=== PATIENT | female | born 1970 | race American Indian/Alaskan Native ===

== ENCOUNTER 2016-05-14 10:12 | Emergency (ER) | payer OTHER ==
[2016-05-14 11:11] VITALS: BP 138/92
[2016-05-14 12:42] LABS: Bilirubin,Urine NEG (Negative); Blood,Urine MOD (Negative); Ketones,Urine NEG (Negative); Leukocyte Esterase,Urine NEG (Negative); Mucus,Urine FEW /HPF; Nitrite,Urine NEG (Negative); Protein,Urine <15 mg/dL mg/dL (Negative); Urobilinogen,Urine < 2.0 mg/dL (<2.0)
--- NOTE | 2016-05-14 14:33 | Emergency Department Report ---
HPI - General Chief Complaint: Urogenital-Female Time Seen by Provider: 05/14/16 13:45 - HPI HPI: 46-year-old female presents today with painful urination 9 days. Patient states that she has been taking cranberry juice and her symptoms have improved. Positive for lower back pain and minimal blood in urine. Denies radiation of pain. Denies numbness, weakness, paresthesias. Denies bowel or bladder incontinence. Denies vaginal discharge, increased urinary frequency or urgency , fever, chills, nausea, vomiting, chest pain, shortness of breath, abdominal pain. Denies trying any medication for symptomatic relief. ED Past Medical Hx - Past Medical History Previous Medical History?: No - Surgical History Past Surgical History?: No - Social History Smoking Status: Never Smoker Substance Use Type: None - Medications Home Medications: Home Medications Medication Instructions Recorded Confirmed Last Taken Type Phenazopyridine [Pyridium] 200 mg PO TID #6 tab 05/14/16 Unknown Rx ED Review of Systems ROS: Stated complaint: BLADDER INFECTION/SINUS Other details as noted in HPI Constitutional: denies: chills, fever, malaise Eyes: denies: eye pain ENT: denies: ear pain, throat pain, congestion Respiratory: denies: cough, shortness of breath, wheezing Cardiovascular: denies: chest pain, palpitations Gastrointestinal: denies: abdominal pain, nausea, vomiting Genitourinary: dysuria, hematuria. denies: urgency, frequency, discharge Musculoskeletal: back pain Neurological: denies: headache, weakness Physical Exam - Physical Exam Vital Signs: Vital Signs 05/14/16 11:08 Temperature 98.6 F Pulse Rate 87 Respiratory 18 Rate Blood Pressure 138/92 O2 Sat by Pulse 100 Oximetry Physical Exam: GENERAL: The patient is well-developed and well-nourished. Patient is in NAD. HEAD: Normocephalic. Atraumatic. CHEST/LUNGS: Clear to auscultation throughout. HEART/CARDIOVASCULAR: Regular rate and rhythm. ABDOMEN: Abdomen is soft, nontender. Bowel sounds normoactive. No guarding or rebound tenderness. Negative for CVA tenderness bilaterally. EXTREMITIES: Peripheral pulses intact. Capillary refill less than 2 seconds. BACK: Full ROM. No midline or paraspinal tenderness to palpation. No tenderness to palpation of sciatic notch bilaterally. Negative straight leg raise bilaterally. NEURO: Alert and oriented x 3. Normal gait. ED Course Vital Signs 05/14/16 11:08 Temperature 98.6 F Pulse Rate 87 Respiratory 18 Rate Blood Pressure 138/92 O2 Sat by Pulse 100 Oximetry ED Medical Decision Making - Lab Data Vital Signs 05/14/16 11:08 Temperature 98.6 F Pulse Rate 87 Respiratory 18 Rate Blood Pressure 138/92 O2 Sat by Pulse 100 Oximetry Lab Results 05/14/16 Range/Units 12:03 Urine Color Yellow (Yellow) Urine Turbidity Clear (Clear) Urine pH 5.0 (5.0-7.0) Ur Specific [place] 1.017 (1.003-1.030) Urine Protein <15 mg/dl (Negative) mg/dL Urine Glucose (UA) Neg (Negative) mg/dL Urine Ketones Neg (Negative) mg/dL Urine Blood Mod (Negative) Urine Nitrite Neg (Negative) Urine Bilirubin Neg (Negative) Urine Urobilinogen < 2.0 (<2.0) mg/dL Ur Leukocyte Esterase Neg (Negative) Urine WBC (Auto) 1.0 (0.0-6.0) /HPF Urine RBC (Auto) 5.0 (0.0-6.0) /HPF U Epithel Cells (Auto) 5.0 (0-13.0) /HPF Urine Mucus Few /HPF - Medical Decision Making 46-year-old female presents today with a painful urination 9 days. Her urinalysis is within normal limits. Informed patient that there is some blood in her urine and provided her with a referral for urology. Patient is in no acute distress at this time. She will be discharged home and is encouraged to follow up with a primary care provider. She will be sent home on Pyridium and is encouraged to return to the emergency room for any worsening symptoms. Critical care attestation.: If time is entered above; I have spent that time in minutes in the direct care of this critically ill patient, excluding procedure time. ED Disposition Clinical Impression: Dysuria Disposition: DISCHARGED TO HOME OR SELFCARE Is pt being admited?: No Does the pt Need Aspirin: No Condition: Stable Instructions: Dysuria (ED) Additional Instructions: Follow-up with primary care provider. Return to the emergency department if symptoms worsen. Prescriptions: Phenazopyridine [Pyridium] 200 mg PO TID #6 tab Referrals: [facility] [Outside] - 3-5 Days PRIMARY CARE, [Primary Care Provider] - 3-5 Days CRYSTAL ANDERSON MD [Staff Physician] - 3-5 Days Forms: Work/School Release Form(ED) Time of Disposition: 14:30
== END 2016-05-14 14:52 | disposition home or self-care (01) ==
LOC: ED 10:12
DX: R30.0 Dysuria (principal); M54.5 Low back pain
CPT/HCPCS: 81001; 99283

== ENCOUNTER 2016-12-18 10:07 | Emergency (ER) | payer SELFPAY ==
[2016-12-18 10:18] VITALS: BP 127/85
[2016-12-18 11:02] LABS: Bilirubin,Urine NEG (Negative); Blood,Urine MOD (Negative); Ketones,Urine TR mg/dL (Negative); Leukocyte Esterase,Urine NEG (Negative); Nitrite,Urine NEG (Negative); Protein,Urine <15 mg/dL mg/dL (Negative); Urobilinogen,Urine < 2.0 mg/dL (<2.0)
--- NOTE | 2016-12-18 15:51 | Emergency Department Report ---
HPI - General Chief Complaint: Urogenital-Female Time Seen by Provider: 12/18/16 15:44 - HPI HPI: Patient is a 46-year-old female with no prior medical history presents to ED complaining of lower pelvic cramping pain 2 weeks and painful urination. Patient states 2 days ago she started experiencing some bilateral flank pain. She also noticed some urinary urgency. Patient also states she has a whitish creamy H malodorous vaginal discharge times one week. She denies fevers/chills/nausea/vomiting/abdominal pain/chest pains or shortness of breath problems. ED Past Medical Hx - Past Medical History Previous Medical History?: Yes Hx Hypertension: Yes (no meds) - Surgical History Past Surgical History?: No - Social History Smoking Status: Never Smoker Substance Use Type: Alcohol, Non Opiate Pain - Medications Home Medications: Home Medications Medication Instructions Recorded Confirmed Last Taken Type Phenazopyridine [Pyridium] 200 mg PO TID #6 tab 12/18/16 Unknown Rx Sulfamethoxazole/Trimethoprim 1 each PO BID #14 tablet 12/18/16 Unknown Rx [Bactrim DS TAB] ED Review of Systems ROS: Stated complaint: UTI Other details as noted in HPI Constitutional: denies: chills, fever Eyes: denies: eye pain, eye discharge, vision change ENT: denies: ear pain, throat pain, congestion Respiratory: denies: cough, shortness of breath, wheezing Cardiovascular: denies: chest pain, palpitations Endocrine: no symptoms reported Gastrointestinal: denies: abdominal pain, nausea, diarrhea Genitourinary: urgency, frequency, discharge. denies: dysuria, hematuria Musculoskeletal: denies: back pain, joint swelling, arthralgia, myalgia Skin: denies: rash, lesions Neurological: denies: headache, weakness, numbness, paresthesias, confusion Psychiatric: denies: anxiety, depression Hematological/Lymphatic: denies: easy bleeding, easy bruising Physical Exam - Physical Exam Vital Signs: Vital Signs 12/18/16 10:13 Temperature 98.7 F Pulse Rate 97 H Respiratory 18 Rate Blood Pressure 127/85 O2 Sat by Pulse 98 Oximetry Physical Exam: GENERAL: Alert and oriented x3, no apparent distress, Normal Gait, atraumatic. HEAD: Head is normocephalic and a-traumatic. LUNGS: Symetrical with respiration, No wheezing, no rales or crackles, CTAB. HEART: S1, S2 present, regular rate and rhythm without murmur, no rubs, no gallops. Non tender to palpation ABDOMEN: No organomegaly was noted,Positive bowel sounds, soft, and non- distended. . Nontender to palpation on all Quadrants, NO CVA tenderness. BACK: Full range of motion, no spinal tenderness, nontender to palpation. GENITOURINARY: External genitalia without erythema, exudate or discharge. Vaginal vault is with moderate discharge. Cervix is of normal color without lesion. Cervical os is closed. No bleeding noted. Uterus is noted to be of normal size and nontender. No cervical motion tenderness. No masses are palpated. The adnexa are without masses or tenderness. SKIN: Warm and dry, No lesions, No ulceration or induration present. ED Course Vital Signs 12/18/16 10:13 Temperature 98.7 F Pulse Rate 97 H Respiratory 18 Rate Blood Pressure 127/85 O2 Sat by Pulse 98 Oximetry ED Medical Decision Making - Medical Decision Making 46-year-old female presents with ED course: Urinalysis, and test, wet prep, gonorrhea and Chlamydia cultures are sent Urinalysis positive ataxia, progressive test negative, wet prep shows bacterial vaginosis Discussed findings with the patient. Discussed patient took medication as prescribed. Patient was treated in the ED for GC and given antibiotics at home for UTI Discussed follow-up with her floral arranger. Discuss to return to ED if any new or worsening symptoms. Vital signs are normal patient is in no acute distress she understands all instructions given. Critical care attestation.: If time is entered above; I have spent that time in minutes in the direct care of this critically ill patient, excluding procedure time. ED Disposition Clinical Impression: Bacterial vaginosis UTI (urinary tract infection) Qualifiers: Urinary tract infection type: acute cystitis Hematuria presence: with hematuria Qualified Code(s): N30.01 - Acute cystitis with hematuria Is pt being admited?: No Does the pt Need Aspirin: No Condition: Stable Instructions: Bacterial Vaginosis (ED), Urinary Tract Infection in Women (ED) Prescriptions: Phenazopyridine [Pyridium] 200 mg PO TID #6 tab Sulfamethoxazole/Trimethoprim [Bactrim DS TAB] 1 each PO BID #14 tablet Referrals: PRIMARY CARE, [Primary Care Provider] - 3-5 Days GUERA MARIE MD [Referring] - 3-5 Days [facility] [Outside] - 3-5 Days [facility] [Outside] - 3-5 Days [facility] [Outside] - 3-5 Days Forms: Accompanied Note, STI Treatment and Prevention, Work/School Release Form (ED) Time of Disposition: 17:15
[2016-12-18 16:20] LABS: Bilirubin,Urine NEG (Negative); Blood,Urine MOD (Negative); Ketones,Urine NEG (Negative); Leukocyte Esterase,Urine NEG (Negative); Mucus,Urine FEW /HPF; Nitrite,Urine NEG (Negative); Protein,Urine <15 mg/dL mg/dL (Negative); Urobilinogen,Urine < 2.0 mg/dL (<2.0); WBC,Urine < 1.0 /HPF (0.0-6.0)
[2016-12-18] MEDS ORDERED: FLAGYL PO ONE (17:14)
== END 2016-12-18 17:38 ==
LOC: ED 10:07
DX: N76.0 Acute vaginitis (principal); N39.0 Urinary tract infection, site not specified; I10 Essential (primary) hypertension
CPT/HCPCS: 81001; 81025; 87210; 87591; 99283

== ENCOUNTER 2018-08-31 08:30 | Emergency (ER) | payer MEDICAID ==
--- NOTE | 2018-08-31 09:12 | Emergency Department Report ---
ED General Adult HPI - General Chief complaint: Earache Stated complaint: EAR ACHE Time Seen by Provider: 08/31/18 09:02 Source: patient Mode of arrival: Ambulatory Limitations: No Limitations - History of Present Illness Initial comments: This is a 48-year-old female with history of untreated hypertension who presents with right ear pain and vaginal discharge. She does not use Q-tips. No foreign bodies in her ear has been there recently. She's had nasal congestion and postnasal drip. She is also concerned for bacterial vaginosis. She desires prescription. -: Gradual, days(s) (4) Location: head, pelvis Consistency: constant Improves with: none Worsens with: none Associated Symptoms: denies other symptoms - Related Data Previous Rx's Medication Instructions Recorded Last Taken Type Phenazopyridine [Pyridium] 200 mg PO TID #6 tab 12/18/16 Unknown Rx Sulfamethoxazole/Trimethoprim 1 each PO BID #14 tablet 12/18/16 Unknown Rx [Bactrim DS TAB] Fluconazole [Diflucan TAB] 150 mg PO ONCE #1 tablet 08/31/18 Unknown Rx Fluticasone [Flonase] 1 spray NS QDAY 30 Days #1 bottle 08/31/18 Unknown Rx Loratadine 10 mg PO DAILY 30 Days #30 tablet 08/31/18 Unknown Rx metroNIDAZOLE [Flagyl TAB] 500 mg PO Q12HR 7 Days #14 tab 08/31/18 Unknown Rx Allergies Allergy/AdvReac Type Severity Reaction Status Date / Time No Known Allergies Allergy Verified 08/31/18 08:31 ED Review of Systems ROS: Stated complaint: EAR ACHE Other details as noted in HPI Constitutional: denies: fever, malaise Eyes: denies: eye pain ENT: ear pain. denies: throat pain Respiratory: denies: cough, shortness of breath Gastrointestinal: denies: abdominal pain Genitourinary: discharge ED Past Medical Hx - Past Medical History Hx Hypertension: Yes - Surgical History Past Surgical History?: No - Social History Smoking Status: Never Smoker - Medications Home Medications: Home Medications Medication Instructions Recorded Confirmed Last Taken Type Phenazopyridine [Pyridium] 200 mg PO TID #6 tab 12/18/16 Unknown Rx Sulfamethoxazole/Trimethoprim 1 each PO BID #14 tablet 12/18/16 Unknown Rx [Bactrim DS TAB] Fluconazole [Diflucan TAB] 150 mg PO ONCE #1 tablet 08/31/18 Unknown Rx Fluticasone [Flonase] 1 spray NS QDAY 30 Days #1 bottle 08/31/18 Unknown Rx Loratadine 10 mg PO DAILY 30 Days #30 tablet 08/31/18 Unknown Rx metroNIDAZOLE [Flagyl TAB] 500 mg PO Q12HR 7 Days #14 tab 08/31/18 Unknown Rx ED Physical Exam - General Limitations: No Limitations General appearance: alert, in no apparent distress - Head Head exam: Present: atraumatic, normocephalic - Eye Eye exam: Present: normal appearance - ENT ENT exam: Present: normal orophraynx, mucous membranes moist, TM's normal bilaterally, normal external ear exam - Neck Neck exam: Present: normal inspection, full ROM - Respiratory Respiratory exam: Absent: respiratory distress - Extremities Exam Extremities exam: Present: normal inspection - Neurological Exam Neurological exam: Present: alert, oriented X3, normal gait - Psychiatric Psychiatric exam: Present: normal affect, normal mood - Skin Skin exam: Present: normal color. Absent: rash ED Course Vital Signs 08/31/18 08:31 Pulse Rate 82 Respiratory 16 Rate Blood Pressure 183/112 O2 Sat by Pulse 100 Oximetry ED Medical Decision Making - Medical Decision Making 1 right ear pain with no evidence of otitis externa or otitis media. No indication of infection. Recommended antihistamines loratadine and Flonase for eustachian tube dysfunction due to allergic rhinitis 2 vaginitis: Fluconazole and metronidazole prescription is provided Critical care attestation.: If time is entered above; I have spent that time in minutes in the direct care of this critically ill patient, excluding procedure time. ED Disposition Clinical Impression: Eustachian tube dysfunction, Allergic rhinitis, Bacterial vaginosis Disposition: DC-01 TO HOME OR SELFCARE Is pt being admited?: No Does the pt Need Aspirin: No Condition: Stable Instructions: Bacterial Vaginosis (ED), Earache (ED) Prescriptions: Fluconazole [Diflucan TAB] 150 mg PO ONCE #1 tablet metroNIDAZOLE [Flagyl TAB] 500 mg PO Q12HR 7 Days #14 tab Fluticasone [Flonase] 1 spray NS QDAY 30 Days #1 bottle Loratadine 10 mg PO DAILY 30 Days #30 tablet Referrals: AURELIO GARNICA MD [Primary Care Provider] - 3-5 Days
[2018-08-31 09:35] VITALS: BP 157/111
== END 2018-08-31 09:35 | disposition home or self-care (01) ==
LOC: ED 08:30
DX: H69.91 Unspecified Eustachian tube disorder, right ear (principal); N76.0 Acute vaginitis; B96.89 Other specified bacterial agents as the cause of diseases classified elsewhere; J30.9 Allergic rhinitis, unspecified; I10 Essential (primary) hypertension
CPT/HCPCS: 99282

== ENCOUNTER 2019-01-13 08:56 | Emergency (ER) | payer MEDICAID ==
[2019-01-13 09:45] LABS: Bilirubin,Urine NEG (Negative); Blood,Urine SM (Negative); Color,Urine Yellow (Yellow); Protein,Urine <15 mg/dL mg/dL (Negative); Urobilinogen,Urine < 2.0 mg/dL (<2.0)
[2019-01-13 09:46] LABS: Mucus,Urine FEW /HPF; WBC,Urine < 1.0 /HPF (0.0-6.0)
--- NOTE | 2019-01-13 10:09 | Emergency Department Report ---
HPI - General Chief Complaint: Back Pain/Injury Time Seen by Provider: 01/13/19 09:49 - HPI HPI: 48-year-old [place] female presents to the emergency department with complaint of a one-day history of some burning with urination and some low back pain. The patient also says she has been having some chills without fever. She thinks that she could have a urinary tract infection. She has not taken anything for her symptoms prior to presentation. She has a past medical history of hypertension. The patient later also admits that she has some mild vaginal discharge. No abdominal pain, nausea, vomiting. ED Past Medical Hx - Past Medical History Previous Medical History?: Yes Hx Hypertension: Yes - Surgical History Past Surgical History?: No - Social History Smoking Status: Current Some Day Smoker Substance Use Type: None - Medications Home Medications: Home Medications Medication Instructions Recorded Confirmed Last Taken Type Phenazopyridine [Pyridium] 200 mg PO TID #6 tab 12/18/16 Unknown Rx Sulfamethoxazole/Trimethoprim 1 each PO BID #14 tablet 12/18/16 Unknown Rx [Bactrim DS TAB] Fluconazole [Diflucan TAB] 150 mg PO ONCE #1 tablet 08/31/18 Unknown Rx Fluticasone [Flonase] 1 spray NS QDAY 30 Days #1 bottle 08/31/18 Unknown Rx Loratadine 10 mg PO DAILY 30 Days #30 tablet 08/31/18 Unknown Rx Fluconazole [Diflucan TAB] 150 mg PO ONCE #1 tablet 01/13/19 Unknown Rx metroNIDAZOLE [Flagyl TAB] 500 mg PO Q12HR 7 Days #14 tab 01/13/19 Unknown Rx ED Review of Systems ROS: Stated complaint: FATIGUE/CHILLS/SORE/PAIN Other details as noted in HPI Comment: All other systems reviewed and negative Constitutional: chills. denies: fever Gastrointestinal: denies: abdominal pain, vomiting Genitourinary: dysuria, discharge Musculoskeletal: back pain. denies: arthralgia Neurological: denies: headache, weakness, numbness Physical Exam - Physical Exam Vital Signs: Vital Signs 01/13/19 08:59 Temperature 97.5 F L Pulse Rate 88 Respiratory 16 Rate Blood Pressure 159/105 O2 Sat by Pulse 100 Oximetry Physical Exam: GENERAL: The patient is well-developed well-nourished. HENT: Normocephalic. Atraumatic. Patient has moist mucous membranes. EYES: Extraocular motions are intact. NECK: Supple. Trachea is midline. CHEST/LUNGS: Clear to auscultation. There is no respiratory distress noted. HEART/CARDIOVASCULAR: Regular. There is no tachycardia. There is no murmur. ABDOMEN: Abdomen is soft, nontender. Patient has normal bowel sounds. There is no abdominal distention. SKIN: Skin is warm and dry. NEURO: The patient is awake, alert, and oriented. The patient is cooperative. The patient has no focal neurologic deficits. Normal speech. MUSCULOSKELETAL: There is no tenderness or deformity. There is no evidence of acute injury. : Mild amount of thin white malodorous discharge seen in the vagina. ED Course Vital Signs 01/13/19 08:59 Temperature 97.5 F L Pulse Rate 88 Respiratory 16 Rate Blood Pressure 159/105 O2 Sat by Pulse 100 Oximetry - Reevaluation(s) Reevaluation #1: Pelvic examination was done with utility tech Jacque at bedside for assistance and to can line examiner. 01/13/19 13:34 ED Medical Decision Making - Medical Decision Making Patient presents with the complaint of some low back pain, dysuria and some vaginal discharge. Urinalysis is negative. Wet prep done that was positive for bacterial vaginosis and mild yeast. Patient be started on Flagyl and given a Diflucan pill. She will follow up with primary care and GENERATOR TECHNICIAN. She will return to the ER with any worsening of her symptoms or any acute distress. - Differential Diagnosis UTI, BV, trichomoniasis, PID Critical Care Time: No Critical care attestation.: If time is entered above; I have spent that time in minutes in the direct care of this critically ill patient, excluding procedure time. ED Disposition Clinical Impression: Dysuria, Bacterial vaginosis, Vulvovaginal candidiasis Hypertension Qualifiers: Hypertension type: essential hypertension Qualified Code(s): I10 - Essential (primary) hypertension Disposition: - TO HOME OR SELFCARE Is pt being admited?: No Condition: Stable Instructions: Bacterial Vaginosis (ED), Vulvovaginal Candidiasis (ED), Hypertension (ED) Additional Instructions: Please follow-up with your primary care physician and an GENERATOR TECHNICIAN in the next few days. Take the medications as prescribed. The treatment for the bacterial va ginosis, Flagyl/metronidazole, has a very severe reaction if mixed with alcohol of any quantity. Do not drink any alcohol during, and for 2 days after completing, the medication. Return to the emergency Department with any worsening of your symptoms or any acute distress. Prescriptions: Fluconazole [Diflucan TAB] 150 mg PO ONCE #1 tablet metroNIDAZOLE [Flagyl TAB] 500 mg PO Q12HR 7 Days #14 tab Referrals: AURELIO GARNICA MD [Primary Care Provider] - 2-3 Days Forms: STI Treatment and Prevention, Work/School Release Form(ED) Time of Disposition: 11:19
[2019-01-13 11:27] VITALS: BP 149/104
== END 2019-01-13 11:38 | disposition home or self-care (01) ==
LOC: ED 08:56
DX: N76.0 Acute vaginitis (principal); B96.89 Other specified bacterial agents as the cause of diseases classified elsewhere; B37.3 Candidiasis of vulva and vagina; I10 Essential (primary) hypertension; F17.200 Nicotine dependence, unspecified, uncomplicated; Z79.899 Other long term (current) drug therapy
CPT/HCPCS: 81001; 87210; 87591